=== PATIENT | female | born 1955 | race American Indian/Alaskan Native ===

== ENCOUNTER 2016-11-05 11:52 | Emergency (ER) | payer MEDICARE ==
[2016-11-05 12:16] VITALS: RESP 16; TEMP 97.4; O2SAT 100; BMI 24.9
[2016-11-05] MEDS ORDERED: Bacitracin 500 Units/gm Oint Foilpak UD TOP STA (12:25)
[2016-11-05] MEDS ORDERED: Oxycodone/Acetaminophen 5/325 mg Tab PO STA (12:25)
--- NOTE | 2016-11-05 13:41 | RAD ---
PROCEDURE: Radiographs of the Lumbar Spine. HISTORY: fall COMPARISON: No prior. FINDINGS: BONES: Lumbar lordotic straightening. No listhesis. No fracture. Mild L4 and L5 spondylotic ridging DISC SPACES: Unremarkable. OTHER FINDINGS: Right L4-5 and bilateral L5-S1 mild facet arthrosis Bilateral hemipelvic phleboliths IMPRESSION: No fracture or subluxation. Osteoarthrosis
--- NOTE | 2016-11-05 13:48 | RAD ---
PROCEDURE: Right Wrist Radiographs. HISTORY: fall COMPARISON: None. FINDINGS: BONES: Normal. No fracture. JOINTS: Normal. No dislocation. SOFT TISSUES: Normal. OTHER FINDINGS: None. IMPRESSION: Normal right wrist radiographs.
--- NOTE | 2016-11-05 14:00 | ED PDOC ---
Arrival/HPI - General Chief Complaint: Trauma Time Seen by Provider: 11/05/16 12:25 Historian: Patient - History of Present Illness Narrative History of Present Illness (Text): 11/05/16 17:29 Patient sts she slipped and fell on the wet floor, c/o right wrist pain and low back pain. In contrary to the triage patient doesn't c/o hip pain. Context: Walking Past Medical History - Infectious Disease Hx of Infectious Diseases: None - Tetanus Immunization Tetanus Immunization: Unknown - Cardiac Hx Hypertension: Yes - Neurological Hx Headaches: Yes - HEENT Hx Cataracts: Yes - Gastrointestinal Other/Comment: polyps - Psychiatric Hx Substance Use: No - Surgical History Hx Orthopedic Surgery: Yes (carpal tunnel release.) - Anesthesia Hx Anesthesia: Yes Hx Anesthesia Reactions: No Hx Malignant Hyperthermia: No - Suicidal Assessment Feels Threatened In Home Enviroment: No Family/Social History - Physician Review Nursing Documentation Reviewed: Yes Family/Social History: No Known Family HX Smoking Status: Never Smoked Hx Alcohol Use: No Hx Substance Use: No Hx Substance Use Treatment: No Allergies/Home Meds Allergies/Adverse Reactions: Allergies No Known Allergies Allergy (Verified 05/19/14 14:44) Home Medications: Home Meds Medication Instructions Recorded Confirmed Amlodipine Besylate/Olmesart [Ti 1 tab PO DAILY 06/09/14 02/06/15 10 mg-20 mg] Metoprolol Succinate [Metoprolol 25 mg PO DAILY 06/09/14 02/06/15 Succinate] Meclizine HCl [Antivert] 02/06/15 02/06/15 Review of Systems - Physician Review All systems were reviewed & negative as marked: Yes - Review of Systems Musculoskeletal: Back Pain, Other (right wrist pain) Physical Exam Vital Signs Reviewed: Yes Vital Signs Temp Pulse Resp BP Pulse Ox 11/05/16 14:13 62 16 142/78 100 11/05/16 12:12 97.4 F L 63 16 145/79 100 Temperature: Afebrile Blood Pressure: Normal Pulse: Regular Respiratory Rate: Normal Appearance: Positive for: Well-Appearing, Non-Toxic, Comfortable Pain Distress: None Mental Status: Positive for: Alert and Oriented X 3 - Systems Exam Head: Present: Atraumatic, Normocephalic. No: Tenderness Neck: Present: Normal Range of Motion. No: MIDLINE TENDERNESS, Paraspinal Tenderness Respiratory/Chest: Present: Clear to Auscultation, Good Air Exchange Cardiovascular: Present: Regular Rate and Rhythm, Normal S1, S2 Abdomen: No: Tenderness Back: Present: Normal Inspection, Paraspinal Tenderness (right >left). No: Midline Tenderness Upper Extremity: Present: Normal Inspection, Normal ROM, Tenderness (right wrist ), Neurovascularly Intact. No: Swelling Lower Extremity: Present: Normal Inspection, Normal ROM Skin: Present: Warm, Normal Color Psychiatric: Present: Alert, Oriented x 3 Medical Decision Making ED Course and Treatment: 11/05/16 17:32 Right wrist xray and LS spine xray were negative for acute finding, Geoffrey wrap to the right wrist was applied by RN. Patient was d/c home with PMD follow up. - RAD Interpretation Radiology Orders: 11/05/16 12:31 LS SPINE AP/LAT [RAD] Stat WRIST, RIGHT 3 VIEWS [RAD] Stat - Medication Orders Current Medication Orders: Discontinued Medications Ibuprofen (Motrin Tab) 600 mg PO STAT STA Stop: 11/05/16 12:38 Last Admin: 11/05/16 12:44 Dose: Not Given Non-Admin Reason: Patient Refused Disposition/Present on Arrival - Present on Arrival Any Indicators Present on Arrival: No History of DVT/PE: No History of Uncontrolled Diabetes: No Urinary Catheter: No History of Decub. Ulcer: No History Surgical Site Infection Following: None - Disposition Have Diagnosis and Disposition been Completed?: Yes Diagnosis: Back strain, Wrist contusion Disposition: HOME/ ROUTINE Disposition Time: 13:53 Condition: STABLE Discharge Instructions (ExitCare): Wrist Injury (ED), Back Pain (ED) Additional Instructions: Follow up with PMD within 1-2 days. Return to ED if feel worse. Prescriptions: Cyclobenzaprine [Cyclobenzaprine HCl] 10 mg PO TID #15 tab Ibuprofen [Motrin Tab] 600 mg PO Q8 #30 tab Referrals: Mookie Hernandez [Primary Care Provider] - Follow up with primary Forms: [employer] (Italian)
[2016-11-05 14:34] VITALS: BP 142/78; PULSE 62
== END 2016-11-05 14:13 | disposition home or self-care (01) ==
LOC: ED 11:52
DX: I10 Essential (primary) hypertension (principal); S60.211A Contusion of right wrist, initial encounter; S39.012A Strain of muscle, fascia and tendon of lower back, initial encounter; W01.0XXA Fall on same level from slipping, tripping and stumbling without subsequent striking against object, initial encounter; Y93.01 Activity, walking, marching and hiking

== ENCOUNTER 2017-07-16 20:02 | Emergency (ER) | payer MEDICARE ==
[2017-07-16 20:03] VITALS: BMI 24.9
[2017-07-16 20:19] VITALS: BP 139/107; RESP 18
--- NOTE | 2017-07-16 20:27 | ED PDOC ---
Arrival/HPI - General Chief Complaint: Chest Pain Time Seen by Provider: 07/16/17 20:03 - History of Present Illness Narrative History of Present Illness (Text): 07/16/17 20:25 62 yo femael, hx of htn, pud, presetns with cp and abd pain since sat. pt report epigastrc sharp pain that on occasion radiates to chest. no fevers, no cough, (+)n/v. pt states pain is intermittant. had stress test during last yr neg. no h/o of mi, cardiac cath. Past Medical History - Infectious Disease Hx of Infectious Diseases: None - Tetanus Immunization Tetanus Immunization: Unknown - Cardiac Hx Angina: Yes Hx Hypertension: Yes - Neurological Hx Headaches: Yes - HEENT Hx Cataracts: Yes - Gastrointestinal Other/Comment: polyps - Psychiatric Hx Substance Use: No - Surgical History Hx Orthopedic Surgery: Yes (carpal tunnel release.) - Anesthesia Hx Anesthesia: Yes Hx Anesthesia Reactions: No Hx Malignant Hyperthermia: No - Suicidal Assessment Feels Threatened In Home Enviroment: No Family/Social History Family/Social History: Unknown Family HX Smoking Status: Never Smoked Hx Alcohol Use: No Hx Substance Use: No Hx Substance Use Treatment: No Allergies/Home Meds Allergies/Adverse Reactions: Allergies No Known Allergies Allergy (Verified 05/19/14 14:44) Home Medications: Home Meds Medication Instructions Recorded Confirmed Amlodipine Besylate/Olmesart [Ti 1 tab PO DAILY 06/09/14 02/06/15 10 mg-20 mg] Metoprolol Succinate [Metoprolol 25 mg PO DAILY 06/09/14 02/06/15 Succinate] Meclizine HCl [Antivert] 02/06/15 02/06/15 Review of Systems - Review of Systems Constitutional: Normal Eyes: Normal ENT: Normal Respiratory: Normal Cardiovascular: Chest Pain Gastrointestinal: Abdominal Pain Genitourinary Female: Normal Musculoskeletal: Normal Skin: Normal Neurological: Normal Endocrine: Normal Hemo/Lymphatic: Normal Psychiatric: Normal Physical Exam Vital Signs Temp Pulse Resp BP Pulse Ox 07/16/17 21:43 98.5 F 76 18 100 07/16/17 20:16 99.7 F H 75 18 139/107 H 99 Temperature: Afebrile Blood Pressure: Normal Pulse: Regular Respiratory Rate: Normal Appearance: Positive for: Well-Appearing, Non-Toxic, Comfortable Pain Distress: None Mental Status: Positive for: Alert and Oriented X 3 - Systems Exam Head: Present: Atraumatic, Normocephalic Pupils: Present: PERRL Extroacular Muscles: Present: EOMI Conjunctiva: Present: Normal Mouth: Present: Moist Mucous Membranes Neck: Present: Normal Range of Motion Respiratory/Chest: Present: Clear to Auscultation, Good Air Exchange. No: Respiratory Distress, Accessory Muscle Use Cardiovascular: Present: Regular Rate and Rhythm, Normal S1, S2. No: Murmurs Abdomen: Present: Tenderness (epigastric). No: Distention, Peritoneal Signs, Rebound, Guarding Back: Present: Normal Inspection Upper Extremity: Present: Normal Inspection. No: Cyanosis, Edema Lower Extremity: Present: Normal Inspection. No: Edema Neurological: Present: GCS=15, CN II-XII Intact, Speech Normal Skin: Present: Warm, Dry, Normal Color. No: Rashes Psychiatric: Present: Alert, Oriented x 3, Normal Insight, Normal Concentration Medical Decision Making ED Course and Treatment: 07/16/17 20:26 atypical cp/abd pain - consider atypical cardiac, pud, gastrits, pancreatitis bedside us neg for gallbladder pathology ekng nsr [address] t wave changes. 07/16/17 21:35 labs unremarkable. pain improvin. cxr neg as read by me. pt offered further observation until resolution of pain, however she declines. notified of blood in ua. atypical pain, no ekg changes, recent neg stress. advsie outpt fu - Lab Interpretations Lab Results: 07/16/17 20:30 07/16/17 20:30 Lab Results 07/16/17 21:00: Urine Color Yellow, Urine Appearance Sl cloudy, Urine pH 6.0, Ur Specific [place] >= 1.030, Urine Protein Trace H, Urine Glucose (UA) Negative , Urine Ketones >=80, Urine Blood Large H, Urine Nitrate Negative, Urine Bilirubin Moderate H, Urine Urobilinogen 0.2, Ur Leukocyte Esterase Negative, Urine RBC 2 - 5, Urine WBC 2 - 5, Ur Epithelial Cells 4 - 5, Amorphous Sediment Few, Urine Bacteria Few 07/16/17 20:30: Sodium 137, Potassium 4.2, Chloride 100, Carbon Dioxide 27, Anion Gap 15, BUN 10, Creatinine 0.8, Est GFR ( Amer) > 60, Est GFR (Non- Af Amer) > 60, Random Glucose 114 H, Calcium 10.5, Magnesium 2.0, Total Bilirubin 1.0, Direct Bilirubin 0.5 H, AST 36, ALT 24, Alkaline Phosphatase 66, Lactate Dehydrogenase 588, Total Creatine Kinase 87, Troponin I 0.02 D, Total Protein 7.7, Albumin 4.4, Globulin 3.3, Albumin/Globulin Ratio 1.4, Lipase 217 07/16/17 20:30: PT 11.5, INR 1.00, APTT 25.4 07/16/17 20:30: WBC 6.3 D, RBC 5.03, Hgb 14.3, Hct 40.9, MCV 81.3, MCH 28.4, MCHC 35.0, RDW 13.0, Plt Count 181, MPV 11.0, Gran % 66.9, Lymph % (Auto) 25.8, Cole % (Auto) 6.8 H, Eos % (Auto) 0.2 L, Baso % (Auto) 0.3, Gran # 4.23, Lymph # (Auto) 1.6, Cole # (Auto) 0.4, Eos # (Auto) 0.0, Baso # (Auto) 0.02 - RAD Interpretation Radiology Orders: 07/16/17 20:24 CHEST PORTABLE [RAD] Stat - Medication Orders Current Medication Orders: Discontinued Medications Ondansetron HCl (Zofran Inj) 4 mg IVP STAT STA Stop: 07/16/17 20:25 Last Admin: 07/16/17 20:49 Dose: 4 mg IVP Administration Document 07/16/17 20:49 [place] (Rec: 07[facility]16/17 20:49 [id number] Charges for Administration # of IVP Administrations 1 Pantoprazole Sodium (Protonix Inj) 40 mg IVP STAT STA Stop: 07/16/17 20:25 Last Admin: 07/16/17 20:49 Dose: 40 mg IVP Administration Document 07/16/17 20:49 [place] (Rec: 07/16/17 20:49 [id number] Charges for Administration # of IVP Administrations 1 Disposition/Present on Arrival - Present on Arrival Any Indicators Present on Arrival: No History of DVT/PE: No History of Uncontrolled Diabetes: No Urinary Catheter: No History of Decub. Ulcer: No History Surgical Site Infection Following: None - Disposition Have Diagnosis and Disposition been Completed?: Yes Diagnosis: Abdominal pain, Chest pain Disposition: HOME/ ROUTINE Disposition Time: 21:37 Condition: STABLE Discharge Instructions (ExitCare): Chest Pain, Acute Abdomen (Belly Pain), Adult (DC), Chest Pain (ED) Additional Instructions: please follow up with you rdoctor/clinic and specialist. you may require further testing as an outpaitnet. please discuss all lab results with your doctor and specialist. Prescriptions: Omeprazole 40 mg PO DAILY #20 capsule. Referrals: [email or web address] Martín Reshakeel, [Primary Care Provider] - Follow up with primary [facility] [Outside] - Follow up with primary [facility] [place] - Follow up with primary [facility] [Outside] - Follow up with primary Leon Zuluaga MD [Staff Provider] - Follow up with primary Angelo Bae MD [Staff Provider] - Follow up with primary Ruddy Virk MD [Staff Provider] - Follow up with primary Forms: [employer] (Spanish)
[2017-07-16 21:01] LABS: BASO # 0.02 K/mm3 (0.0-2.0); BASO % 0.3 % (0.0-3.0); EOS % 0.2 % (1.5-5.0); GRAN # 4.23 (1.4-6.5); GRAN % 66.9 % (50.0-68.0); HEMOGLOBIN 14.3 g/dL (12.0-16.0); LYMPH # 1.6 (1.2-3.4); LYMPH % 25.8 % (22.0-35.0); MEAN CELL VOLUME 81.3 fl (80.0-105.0); MEAN CORPUSCULAR HEMOGLOBIN 28.4 pg (25.0-35.0); MONO # 0.4 (0.1-0.6); MONO % 6.8 % (1.0-6.0); RBC 5.03 10^6/uL (3.5-6.1); WHITE BLOOD COUNT 6.3 10^3/ul (4.5-11.0)
[2017-07-16 21:07] LABS: CALCIUM 10.5 mg/dL (8.4-10.5); GFR AFRICAN-AMERICAN > 60; GFR NON-AFRICAN AMERICAN > 60; LIPASE 217 U/L (23-300)
[2017-07-16 21:09] LABS: PARTIAL THROMBOPLASTIN TIME 25.4 Seconds (25.1-36.5); PROTHROMBIN TIME 11.5 SECONDS (9.4-12.5)
[2017-07-16 21:13] LABS: URINE APPEARANCE SL CLOUDY (CLEAR); URINE BILIRUBIN MODERATE (NEGATIVE); URINE BLOOD LARGE (NEGATIVE); URINE COLOR YELLOW (YELLOW); URINE GLUCOSE (UA) NEGATIVE (NEGATIVE); URINE LEUKOCYTE ESTERASE NEGATIVE Leu/uL (NEGATIVE); URINE PROTEIN TRACE mg/dL (<30 mg/dL); URINE UROBILINOGEN 0.2 E.U./dL (<1 E.U./dL)
[2017-07-16 21:26] LABS: URINE AMORPHOUS SEDIMENT FEW; URINE BACTERIA FEW (NEG)
[2017-07-16 21:32] LABS: ALB/GLOB RATIO 1.4 (1.1-1.8); ALBUMIN 4.4 g/dL (3.0-4.8); ALT/SGPT 24 U/L (7-56); AST/SGOT 36 U/L (14-36); BILIRUBIN,DIRECT 0.5 mg/dL (0.0-0.4); BLOOD UREA NITROGEN 10 mg/dL (7-21); TROPONIN I 0.02 ng/mL
[2017-07-16 21:44] VITALS: PULSE 76; TEMP 98.5; O2SAT 100
--- NOTE | 2017-07-17 09:32 | RAD ---
HISTORY: cp/abd pain COMPARISON: 05/19/2014 FINDINGS: LUNGS: No active pulmonary disease. PLEURA: No significant pleural effusion identified, no pneumothorax apparent. CARDIOVASCULAR: Normal. OSSEOUS STRUCTURES: No significant abnormalities. VISUALIZED UPPER ABDOMEN: Normal. OTHER FINDINGS: None. IMPRESSION: No active disease.
--- NOTE | 2017-07-17 17:45 | CARD ---
APPROVED REPORT EKG Measurement Heart [id number] <Conclusion> Sinus rhythm with APCs Otherwise normal ECG
== END 2017-07-16 22:05 | disposition home or self-care (01) ==
LOC: ED 20:02
DX: R07.9 Chest pain, unspecified (principal); R10.9 Unspecified abdominal pain; I10 Essential (primary) hypertension
CPT/HCPCS: 71045; 80053; 81001; 82248; 82550; 83615; 83690; 83735; 84484; 85025; 85610; 85730; 93005; 96374; 96375; 99284; C9113; J2405